=== PATIENT | male | born 1990 | race Caucasian/White ===

== ENCOUNTER 2018-11-16 16:08 | Emergency (ER) | payer BC ==
[~2018-11-16] VITALS: Ht 172.7 cm; Wt 104.3 kg
[2018-11-16 16:33] VITALS: Ht 172.7 cm; Wt 104.3 kg
[2018-11-16 21:15] VITALS: BP 135/94
== END 2018-11-16 21:15 | disposition home or self-care (01) ==
LOC: ED 16:08
DX: S39.012A Strain of muscle, fascia and tendon of lower back, initial encounter (principal); X58.XXXA Exposure to other specified factors, initial encounter; Y93.89 Activity, other specified; Y92.89 Other specified places as the place of occurrence of the external cause; Y99.8 Other external cause status
CPT/HCPCS: J1885